=== PATIENT | male | born 1995 | race African-American/Black ===

== ENCOUNTER 2018-09-18 08:50 | Emergency (ER) | payer MEDICAID ==
[~2018-09-18] VITALS: Ht 190.5 cm; Wt 81.0 kg
[2018-09-18] MEDS ORDERED: IBUPROFEN 800MG TABLET PO ONE (10:30)
[2018-09-18 11:18] VITALS: BP 128/79
== END 2018-09-18 11:20 | disposition home or self-care (01) ==
LOC: ER 08:50
DX: M79.641 Pain in right hand (principal); W01.0XXA Fall on same level from slipping, tripping and stumbling without subsequent striking against object, initial encounter; Y93.61 Activity, american tackle football; Y92.838 Other recreation area as the place of occurrence of the external cause
CPT/HCPCS: 73130; 99283

== ENCOUNTER 2018-11-30 21:50 | Emergency (ER) | payer MEDICAID ==
[~2018-11-30] VITALS: Ht 180.3 cm; Wt 79.0 kg
[2018-12-01] MEDS ORDERED: ACETAMINOPHEN 500MG TABLET PO ONE (00:45)
[2018-12-01 03:25] VITALS: BP 133/74
== END 2018-12-01 03:26 | disposition home or self-care (01) ==
LOC: ER 21:56
DX: S06.0X0A Concussion without loss of consciousness, initial encounter (principal); X58.XXXA Exposure to other specified factors, initial encounter; Y93.89 Activity, other specified; Y92.89 Other specified places as the place of occurrence of the external cause; Y99.8 Other external cause status
CPT/HCPCS: 99283